=== PATIENT | male | born 1985 | race Caucasian/White ===

== ENCOUNTER 2016-07-03 18:05 | Emergency (ER) | payer BC ==
[2016-07-03] MEDS ORDERED: Penicillin VK TAB* 250 MG PO ONE (20:34)
--- NOTE | 2016-07-03 20:57 | ED ---
Throat Pain/Nasal Congestion - HPI Summary HPI Summary: Patient presents with three days of left upper molar pain. He fractured a tooth two weeks ago. His pain has waxed and waned but the last three days he has had to take ibuprofen and perform saltwater gargles, which have helped up until today. He has mild facial swelling without fever, chills or drainage. He does not have a dentist but is looking for one. - History of Current Complaint Chief Complaint: EDDentalPain Time Seen by Provider: 07/03/16 20:13 Hx Obtained From: Patient Onset/Duration: Gradual Onset Severity: Moderate Associated Signs And Symptoms: Positive: Negative Cough: None - Allergies/Home Medications Allergies/Adverse Reactions: Allergies Allergy/AdvReac Type Severity Reaction Status Date / Time No Known Allergies Allergy Verified 09/11/12 16:45 PMH/Surg Hx/FS Hx/Imm Hx Previously Healthy: Yes Endocrine/Hematology History: Denies: Hx Diabetes, Hx Thyroid Disease Cardiovascular History: Denies: Hx Hypertension Respiratory History: Denies: Hx Asthma, Hx Chronic Obstructive Pulmonary Disease (COPD) GI History: Denies: Hx Ulcer Sensory History: Denies: Hx Contacts or Glasses Opthamlomology History: Denies: Hx Contacts or Glasses Infectious Disease History: No Infectious Disease History: Denies: Hx Clostridium Difficile, Hx Hepatitis, Hx Human Immunodeficiency Virus (HIV), Hx of Known/Suspected MRSA, Hx Shingles, Hx Tuberculosis, Hx Known/ Suspected VRE, Hx Known/Suspected VRSA, History Other Infectious Disease, Traveled Outside the in Last 30 Days - Family History Known Family History: Positive: None - Social History Occupation: Employed Full-time Lives: With Family Alcohol Use: None Substance Use Type: Reports: None Smoking Status (MU): Never Smoked Tobacco Have You Smoked in the Last Year: No Review of Systems Negative: Fever Positive: Dental Pain. Negative: Sore Throat All Other Systems Reviewed And Are Negative: Yes Physical Exam Triage Information Reviewed: Yes Vital Signs On Initial Exam: Initial Vitals Temp Pulse Resp BP Pulse Ox 98.2 F 83 18 154/82 99 07/03/16 18:11 07/03/16 18:11 07/03/16 18:11 07/03/16 18:11 07/03/16 18:11 Vital Signs Reviewed: Yes Appearance: Positive: Well-Appearing, No Pain Distress, Well-Nourished Skin: Positive: Warm, Skin Color Reflects Adequate Perfusion, Dry, Soft Head/Face: Positive: Normal Head/Face Inspection Eyes: Positive: EOMI, SHAZIA, Conjunctiva Clear Dental: Positive: Gross Decay/Caries @, Dental Fracture @ - left upper molar. Negative: Percussion Tenderness @ Neck: Positive: Supple, Nontender, No Lymphadenopathy Respiratory/Lung Sounds: Positive: Breath Sounds Present Cardiovascular: Positive: RRR Musculoskeletal: Negative: Edema Left, Edema Right Neurological: Positive: Sensory/Motor Intact, Alert, Oriented to Person Place, Time, NV Bundle Intact Distally Psychiatric: Positive: Affect/Mood Appropriate AVPU Assessment: Alert Diagnostics - Vital Signs Vital Signs Temp Pulse Resp BP Pulse Ox 07/03/16 19:11 98.3 F 80 16 120/75 98 07/03/16 18:11 98.2 F 83 18 154/82 99 - Laboratory Lab Statement: Any lab studies that have been ordered have been reviewed, and results considered in the medical decision making process. EENT Course/Dx - Differential Diagnoses Differential Diagnoses: Dental Abscess, Dental Caries, Fractured Tooth, Gingivitis, Odontogenic Pain, Periodontic Abscess, Periodontic Disease - Diagnoses Provider Diagnoses: Infected dental caries Discharge - Discharge Plan Condition: Stable Disposition: HOME Prescriptions: Penicillin VK TAB* [Penicillin VK 250 mg Tab*] 500 mg PO QID #54 tab Patient Education Materials: Toothache (ED) Referrals: Amador Verde MD [Primary Care Provider] - Additional Instructions: Please take the medication provided until it is completely gone. Use ibuprofen for pain and continue warm salt water gargles. Call one of the numbers provided to establish care with a dentist. Return to the emergency department if symptoms worsen.
[2016-07-03 21:02] VITALS: BP 125/67
== END 2016-07-03 21:01 | disposition home or self-care (01) ==
LOC: ED 18:05
DX: K02.9 Dental caries, unspecified (principal); K08.89 Other specified disorders of teeth and supporting structures
CPT/HCPCS: 99282; A9270-GY

== ENCOUNTER 2016-12-28 22:44 | Emergency (ER) | payer BC ==
[2016-12-28 22:49] VITALS: BP 122/77
--- NOTE | 2016-12-28 23:02 | ED ---
Bite Injury/Animal - HPI Summary HPI Summary: 31M presents with tick bite right upper thigh. He states he was outside last night and that was when the tick would have bite. He did not try to remove tick. He denies any fever or rash. He states he has never had lyme before. - History of Current Complaint Chief Complaint: EDAnimalBite Stated Complaint: TICK BITE Time Seen by Provider: 12/28/16 22:51 Pain Intensity: 0 - Allergies/Home Medications Allergies/Adverse Reactions: Allergies Allergy/AdvReac Type Severity Reaction Status Date / Time No Known Allergies Allergy Verified 12/28/16 22:49 PMH/Surg Hx/FS Hx/Imm Hx Endocrine/Hematology History: Denies: Hx Diabetes, Hx Thyroid Disease Cardiovascular History: Denies: Hx Hypertension Respiratory History: Denies: Hx Asthma, Hx Chronic Obstructive Pulmonary Disease (COPD) GI History: Denies: Hx Ulcer Sensory History: Denies: Hx Contacts or Glasses Opthamlomology History: Denies: Hx Contacts or Glasses - Immunization History Date of Tetanus Vaccine: utd Date of Influenza Vaccine: none Infectious Disease History: No Infectious Disease History: Denies: Hx Clostridium Difficile, Hx Hepatitis, Hx Human Immunodeficiency Virus (HIV), Hx of Known/Suspected MRSA, Hx Shingles, Hx Tuberculosis, Hx Known/ Suspected VRE, Hx Known/Suspected VRSA, History Other Infectious Disease, Traveled Outside the [place] in Last 30 Days - Family History Known Family History: Positive: None - Social History Alcohol Use: Rare Substance Use Type: Reports: None Smoking Status (MU): Never Smoked Tobacco Have You Smoked in the Last Year: No Review of Systems Negative: Fever Negative: Chest Pain Negative: Shortness Of Breath Positive: Other - tick bite All Other Systems Reviewed And Are Negative: Yes Physical Exam Triage Information Reviewed: Yes Vital Signs On Initial Exam: Initial Vitals Temp Pulse Resp BP Pulse Ox 97.9 F 82 16 122/77 96 12/28/16 22:46 12/28/16 22:46 12/28/16 22:46 12/28/16 22:46 12/28/16 22:46 Vital Signs Reviewed: Yes Appearance: Positive: Well-Appearing Skin: Positive: Warm, Dry, Other - tick on right upper thigh that is engorged Head/Face: Positive: Normal Head/Face Inspection Eyes: Positive: Normal, Conjunctiva Clear Respiratory/Lung Sounds: Positive: Clear to Auscultation, Breath Sounds Present Cardiovascular: Positive: Normal, RRR Musculoskeletal: Positive: Strength/ROM Intact - legs - [place] Coma Scale Coma Scale Total: 15 Diagnostics - Vital Signs Vital Signs Temp Pulse Resp BP Pulse Ox 12/28/16 22:46 97.9 F 82 16 122/77 96 - Laboratory Lab Statement: Any lab studies that have been ordered have been reviewed, and results considered in the medical decision making process. Bite Injury Course/Dx - Course Course Of Treatment: 31M presents with tick bite right upper thigh. He states he was outside last night and that was when the tick would have bite. He did not try to remove tick. He denies any fever or rash. He states he has never had lyme before. removed tick from thigh. will ppx with doxcycline. patient understands and agrees with plan. - Diagnoses Differential Diagnosis/HQI/PQRI: Positive: Other - tick, lyme disease Provider Diagnosis: Tick bite Discharge - Discharge Plan Condition: Good Disposition: HOME Patient Education Materials: Tick Bite (ED) Referrals: Amador Verde MD [Primary Care Provider] - Additional Instructions: You have been prophylactically treated for Lyme disease Return to ED if develop any rash or signs of infection
[2016-12-28] MEDS ORDERED: DOXYcycline CAP(*) 100 MG PO ONE (23:08)
== END 2016-12-28 23:45 | disposition home or self-care (01) ==
LOC: ED 22:44
DX: S70.361A Insect bite (nonvenomous), right thigh, initial encounter (principal); W57.XXXA Bitten or stung by nonvenomous insect and other nonvenomous arthropods, initial encounter; Y93.9 Activity, unspecified; Y92.9 Unspecified place or not applicable
CPT/HCPCS: 99281; A9270-GY

== ENCOUNTER 2017-12-20 09:53 | Emergency (ER) | payer BC ==
[2017-12-20 10:00] VITALS: BP 123/82
--- NOTE | 2017-12-20 10:14 | UC ---
Hand/Wrist HPI - HPI Summary HPI Summary: 32-year-old male with left hand pain. He was fishing yesterday did fall on uneven ground approximately 7 AM and then again around 10:30 AM onto the left hand with his hand outstretched. He denies any finger numbness or elbow pain. He this morning woke up and is having pain and loss of range of motion in his left hand particularly at the base of the thumb. No other concerns at this time. - History Of Current Complaint Chief Complaint: UCUpperExtremity Stated Complaint: THUMB INJURY Time Seen by Provider: 12/20/17 10:04 Hx Obtained From: Patient Onset/Duration: Sudden Onset Pain Intensity: 7 Associated Signs And Symptoms: Positive: Swelling - Allergies/Home Medications Allergies/Adverse Reactions: Allergies Allergy/AdvReac Type Severity Reaction Status Date / Time No Known Allergies Allergy Verified 12/20/17 10:00 Home Medications: Home Medications NK [No Home Medications Reported] 12/20/17 [History Confirmed 12/20/17] PMH/Surg Hx/FS Hx/Imm Hx Previously Healthy: Yes - Surgical History Surgical History: None - Family History Known Family History: Positive: None - Social History Occupation: Employed Full-time - [employer] Alcohol Use: Rare Substance Use Type: None Smoking Status (MU): Never Smoked Tobacco Have You Smoked in the Last Year: No Review of Systems Constitutional: Negative Skin: Negative Motor: Decreased ROM Neurovascular: Negative Musculoskeletal: Arthralgia, Decreased ROM Neurological: Negative Psychological: Negative Is Patient Immunocompromised?: No All Other Systems Reviewed And Are Negative: No Physical Exam Triage Information Reviewed: Yes Appearance: Well-Appearing, No Pain Distress, Well-Nourished Vital Signs: Initial Vital Signs Temp 98 F 12/20/17 09:56 Pulse 75 12/20/17 09:56 Resp 15 12/20/17 09:56 BP 123/82 12/20/17 09:56 Pulse Ox 99 12/20/17 09:56 Vital Signs Reviewed: Yes ENT: Positive: Hearing grossly normal Respiratory: Positive: No respiratory distress, No accessory muscle use Cardiovascular: Positive: Brisk Capillary Refill Musculoskeletal: Positive: Strength Intact, ROM Limited @ - tenderness base of the left thumb / MCP neg for snuff box tenderness. cap refill normal. pain with flexion of the thumb. normal wrist and elbow exam. Neurological Exam: Normal Psychological Exam: Normal Skin Exam: Normal Diagnostics - Laboratory Diagnostic Studies Completed/Ordered: xray negative Hand/Wrist Course/Dx - Course Course Of Treatment: X-ray shows no acute concerns and no fracture at this time follow up as needed. Advise a few days of rest ice compress elevate with anti- inflammatories and follow up with primary care doctor if needed. - Differential Dx/Diagnosis Differential Diagnosis/HQI/PQRI: Contusion, Fracture, Sprain, Strain Provider Diagnoses: Left thumb sprain / bony contusion Discharge - Sign-Out/Discharge Documenting (check all that apply): Patient Departure All imaging exams completed and their final reports reviewed: Yes - Discharge Plan Condition: Good Disposition: HOME Patient Education Materials: Swollen Joint (ED) Forms: *Work Release Referrals: Amador Verde MD [Primary Care Provider] - 4 Days (If needed ) Additional Instructions: Your xray was negative for fracture at this time. - Billing Disposition and Condition Condition: GOOD Disposition: Home
--- NOTE | 2017-12-20 10:53 | RAD ---
HISTORY: pain s/p FOOSH COMPARISONS: None VIEWS: 4 , Frontal, lateral, and oblique views of the left hand FINDINGS: BONE DENSITY: Normal. BONES: There is no displaced fracture. JOINTS: There is no arthropathy. ALIGNMENT: There is no dislocation. SOFT TISSUES: Unremarkable. OTHER FINDINGS: None. IMPRESSION: NO ACUTE OSSEOUS INJURY. IF SYMPTOMS PERSIST, RECOMMEND REPEAT IMAGING.
== END 2017-12-20 11:10 | disposition home or self-care (01) ==
LOC: UCEAST 09:53
DX: S63.602A Unspecified sprain of left thumb, initial encounter (principal); S60.012A Contusion of left thumb without damage to nail, initial encounter; W19.XXXA Unspecified fall, initial encounter; Y93.89 Activity, other specified; Y92.9 Unspecified place or not applicable
CPT/HCPCS: 99211; G0463

== ENCOUNTER 2018-05-30 21:48 | Emergency (ER) | payer BC ==
[2018-05-30] MEDS ORDERED: Penicillin VK TAB* 250 MG PO ONE (23:42)
--- NOTE | 2018-05-30 23:42 | ED ---
Throat Pain/Nasal Congestion - HPI Summary HPI Summary: 33-year-old male presents with dental pain for the past couple days. He states that he broke his teeth a couple days ago. He states using ibuprofen and it seemed to get better and then it got worst. He states yesterday the pain increased. He denies any fevers. No sore throat. No chest pain or shortness breath. No increased swelling. denies any swelling around the eyes. - History of Current Complaint Chief Complaint: EDDentalPain Time Seen by Provider: 05/30/18 23:09 - Allergies/Home Medications Allergies/Adverse Reactions: Allergies Allergy/AdvReac Type Severity Reaction Status Date / Time No Known Allergies Allergy Verified 05/30/18 21:53 PMH/Surg Hx/FS Hx/Imm Hx Endocrine/Hematology History: Denies: Hx Diabetes, Hx Thyroid Disease Cardiovascular History: Denies: Hx Hypertension Respiratory History: Denies: Hx Asthma, Hx Chronic Obstructive Pulmonary Disease (COPD) GI History: Denies: Hx Ulcer Sensory History: Denies: Hx Contacts or Glasses Opthamlomology History: Denies: Hx Contacts or Glasses - Immunization History Date of Tetanus Vaccine: utd Date of Influenza Vaccine: none Infectious Disease History: No Infectious Disease History: Denies: Hx Clostridium Difficile, Hx Hepatitis, Hx Human Immunodeficiency Virus (HIV), Hx of Known/Suspected MRSA, Hx Shingles, Hx Tuberculosis, Hx Known/ Suspected VRE, Hx Known/Suspected VRSA, History Other Infectious Disease, Traveled Outside the in Last 30 Days - Family History Known Family History: Positive: None - Social History Alcohol Use: Rare Substance Use Type: Reports: None Smoking Status (MU): Never Smoked Tobacco Have You Smoked in the Last Year: No Review of Systems Negative: Fever Positive: Dental Pain Negative: Chest Pain Negative: Shortness Of Breath All Other Systems Reviewed And Are Negative: Yes Physical Exam Triage Information Reviewed: Yes Vital Signs On Initial Exam: Initial Vitals Temp Pulse Resp BP Pulse Ox 98.3 F 82 16 138/98 97 05/30/18 21:50 05/30/18 21:50 05/30/18 21:50 05/30/18 21:50 05/30/18 21:50 Vital Signs Reviewed: Yes Appearance: Positive: Well-Appearing Skin: Positive: Warm, Dry Head/Face: Positive: Normal Head/Face Inspection Eyes: Positive: Normal, EOMI, SHAZIA, Conjunctiva Clear ENT: Positive: Normal ENT inspection, Pharynx normal, TMs normal Dental: Positive: Dental Fracture @ - 17. Negative: Abscess @ Neck: Positive: Supple, Nontender, No Lymphadenopathy Respiratory/Lung Sounds: Positive: Clear to Auscultation, Breath Sounds Present Cardiovascular: Positive: Normal Musculoskeletal: Positive: Normal Neurological: Positive: Normal Psychiatric: Positive: Normal Diagnostics - Vital Signs Vital Signs Temp Pulse Resp BP Pulse Ox 05/30/18 21:50 98.3 F 82 16 138/98 97 - Laboratory Lab Statement: Any lab studies that have been ordered have been reviewed, and results considered in the medical decision making process. EENT Course/Dx - Course Course Of Treatment: 33-year-old male presents with dental pain for the past couple days. He states that he broke his teeth a couple days ago. He states using ibuprofen and it seemed to get better and then it got worst. He states yesterday the pain increased. He denies any fevers. No sore throat. No chest pain or shortness breath. No increased swelling. denies any swelling around the eyes. On exam has fractured tooth noted to tooth lower left. No erythema around the tooth. We'll give penicillin for prevent infection. Told to follow- up with dentist. Patient understands agrees plan. - Differential Diagnoses Differential Diagnoses: Dental Abscess, Dental Caries, Fractured Tooth - Diagnoses Provider Diagnoses: Tooth fracture Discharge - Sign-Out/Discharge Documenting (check all that apply): Patient Departure Patient Received Moderate/Deep Sedation with Procedure: No - Discharge Plan Condition: Good Disposition: HOME Prescriptions: Penicillin VK TAB* [Penicillin VK 250 mg Tab*] 500 mg PO QID #27 tab Patient Education Materials: Toothache (ED) Referrals: Amador Verde MD [Primary Care Provider] - Additional Instructions: Take antibiotics: 4 times a day for 7 days, first dose given in ED Use ibuprofen or tyenlol every 6 hours Avoid hard, crunchy food until seen by dentist Follow up with dentist as soon as possible Return to ED if develop fever, shortness of breath, pain with eye movement or swelling around eye - Billing Disposition and Condition Condition: GOOD Disposition: Home Images - Images Dental: 1 - fracture
[2018-05-31 02:40] VITALS: BP 131/72
== END 2018-05-31 00:58 | disposition home or self-care (01) ==
LOC: ED 21:48
DX: K03.81 Cracked tooth (principal)
CPT/HCPCS: 99282; A9270-GY